=== PATIENT | female | born 1970 | race Caucasian/White ===

== ENCOUNTER 2021-07-12 08:06 | Outpatient (REF) | payer OTHER, SELFPAY ==
--- NOTE | 2021-07-12 10:10 | MHC.AU.ANO ---
Adult Audiological Evaluation Date of Visit: 07/12/21 Sample Book Maker Used: Not Applicable Reason for Appointment: Audiologic evaluation due to decreased hearing in the left ear. Yolanda reports approximately 12-18 months ago she noticed she does not hear as well from the left ear compared to the right. She made this realization when she started having Zoom Meetings and wearing earphones. Yolanda reports she has never experienced head trauma or allergy/sinus problems. Hearing Handicap Inventory: HHIE SCORE: 10 Based on HHIE score, patient has: Mild to moderate perceived hearing handicap Ear History: Family History of Hearing Loss?: Yes: Mother, may be related to medications Ear used on the phone: Right Ear Blocked/Full Sensation in Ear(s): Left Ear History of occupational noise exposure?: No History: History: No Medical History: Medical History: Headache, Migraines Allergies: Sulfa and Penicillin Medication List: Butalbital/Romeo/Caff - as needed for migraines Otoscopy: Right Ear: Unremarkable Left Ear: Unremarkable Tympanometry: Tympanometry performed due to: To assess integrity of the middle ear system Right Ear: Normal Middle Ear System (Type A) Left Ear: Normal Middle Ear System (Type A) Acoustic Reflexes: Ipsilateral Probe Right: 500 Hz: Present - 90 1000 Hz: Present - 85 2000 Hz: Present - 85 4000 Hz: Present - 90 Probe Left: 500 Hz: Absent 1000 Hz: Absent 2000 Hz: Absent 4000 Hz: Absent Otoacoustic Emissions Frequency Range Used: 1.6-8 kHz Right Ear Results: Present Emissions Analysis: Present emissions suggest normal cochlear function Rules out peripheral hearing loss greater than a mild degree Left Ear Results: Absent Emissions Analysis: Results are consistent with degree and configuration of hearing loss Hearing Evaluation: Transducer(s) Used: Insert Earphones Bone Conduction Method: Conventional Audiometry Stimuli Used: Pure Tones Right Ear: Description of Hearing: Normal hearing thresholds 250-8000 Hz Left Ear: Description of Hearing: Moderate, rising to borderline normal mixed hearing loss Speech Recognition Threshold (SRT): Method Used: Monitored Live Voice Stimuli Used: Spondee Words Right Ear: 5 dB HL Left Ear: 35 dB HL Word Discrimination: Method: Recorded Lists Word Lists Used: NU-6 Right Ear: 96% at 50 dB HL Left Ear: 92% at 80 dB HL Recommendations: - Advise medical consultation with an Dental Ceramist Assistant/P[employer] with possible imaging study due to the left ear mixed hearing loss with normal tympanic membrane function. - Will send a 6 month audiologic re-evaluation card to monitor hearing thresholds to determine if loss is progressive in nature. - If the left ear loss cannot be treated medically, advise trial period with a hearing aid. Diagnosis: Primary Diagnosis: H90.72 Mixed HL, Unilateral, Left Ear, W/Unrestricted Contralateral Services Performed: Comprehensive Audiological Evaluation (CPT 41166) Diagnostic Otoacoustic Emissions (CPT 57043, 26+TC) Tympanometry and Acoustic Reflexes (CPT 69196) Signature: Provider: Kris Dubon, CCC-A
== END 2021-07-12 08:07 | disposition home or self-care (01) ==
LOC: HO.SH 08:06
PROVIDERS: Visit Provider Nurse Practitioner Family
DX: H90.12 Conductive hearing loss, unilateral, left ear, with unrestricted hearing on the contralateral side (principal)
CPT/HCPCS: 92550; 92557; 92588

== ENCOUNTER 2022-08-12 08:44 | Outpatient (REF) | payer OTHER, SELFPAY | END 2022-08-12 08:45 | disposition home or self-care (01) | LOC: HO.SH 08:44 | PROVIDERS: Visit Provider Family Medicine | DX: H90.72 Mixed conductive and sensorineural hearing loss, unilateral, left ear, with unrestricted hearing on the contralateral side (principal) | CPT/HCPCS: 92557; 92567 ==